=== PATIENT | male | born 1990 | race Caucasian/White ===

== ENCOUNTER 2021-05-17 23:36 | Emergency (ER) | payer OTHER ==
[~2021-05-17] VITALS: Ht 193 cm; Wt 113.4 kg
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
[2021-05-17] MEDS ORDERED: SUBOXONE 4 MG-1 EACH DISSOLVE (23:46)
[2021-05-18 00:17] LABS: ABSOLUTE NEUTROPHILS 4.6 thou/uL (1.4-8.2); BASOPHILS 0.6 % (0.0-2.0); EOSINOPHILS 5.2 % (0.0-3.0); HEMATOCRIT 38.8 % (42.0-52.0); LYMPHOCYTES 43.5 % (24.0-44.0); MCH 28.7 pg (26.0-34.0); MCHC 33.4 g/dL (28.0-37.0); MCV 85.8 fL (80.0-100.0); MONOCYTES 7.2 % (1.0-8.0); PLATELET COUNT 252 thou/uL (150-400); POLYS 43.5 % (36.0-66.0); RBC 4.52 mil/uL (4.50-6.00); RDW 12.7 % (10.5-14.5); WBC 10.5 thou/uL (4.0-11.0)
[2021-05-18 00:20] LABS: CALCIUM 9.2 mg/dL (8.5-10.1); CREATININE 1.1 mg/dL (0.7-1.3); POTASSIUM 3.9 mmol/L (3.5-5.1)
[2021-05-18] MEDS ORDERED: PREDNISONE 20 M20 MG PO (01:22)
[2021-05-18] MEDS ORDERED: PROAIR HFA8.5 GM INH (01:22)
[2021-05-18 01:32] VITALS: BP 125/51
== END 2021-05-18 01:32 | disposition home or self-care (01) ==
LOC: ER 23:36
PROVIDERS: Emergency Medicine
DX: J98.01 Acute bronchospasm (principal); Z20.822 Contact with and (suspected) exposure to COVID-19; Z79.899 Other long term (current) drug therapy